=== PATIENT | male | born 1990 | race Caucasian/White ===

== ENCOUNTER 2018-07-29 22:37 | Emergency (ER) | payer OTHER ==
[~2018-07-29] VITALS: Ht 180.3 cm; Wt 88.5 kg
[2018-07-30] MEDS ORDERED: VISTARIL25 MG PO ×2 (01:48→01:50)
[2018-07-30] MEDS ORDERED: NORFLEX100MG PO (01:48)
[2018-07-30] MEDS ORDERED: LEVSIN/SL0.125 MG SL (01:48)
== END 2018-07-30 01:54 | disposition home or self-care (01) ==
LOC: ER 22:37
DX: R53.81 Other malaise (principal); M54.2 Cervicalgia; G47.00 Insomnia, unspecified

== ENCOUNTER 2018-09-12 22:18 | Emergency (ER) | payer OTHER ==
[~2018-09-12] VITALS: Ht 180.3 cm; Wt 89.8 kg
[~2018-09-12 22:18] MED LIST: LEVSIN/SL0.125 MG SL; NORFLEX100MG PO; VISTARIL25 MG PO
== END 2018-09-13 03:22 | disposition home or self-care (01) ==
LOC: ER 22:18
DX: T15.02XA Foreign body in cornea, left eye, initial encounter (principal); W45.8XXA Other foreign body or object entering through skin, initial encounter; Y93.89 Activity, other specified; Y92.89 Other specified places as the place of occurrence of the external cause; Y99.8 Other external cause status

== ENCOUNTER 2018-11-15 00:38 | Emergency (ER) | payer OTHER ==
[~2018-11-15] VITALS: Ht 180.3 cm; Wt 92.1 kg
== END 2018-11-15 02:41 | disposition home or self-care (01) ==
LOC: ER 00:38
DX: S67.190A Crushing injury of right index finger, initial encounter (principal); W23.0XXA Caught, crushed, jammed, or pinched between moving objects, initial encounter; Y93.89 Activity, other specified; Y92.098 Other place in other non-institutional residence as the place of occurrence of the external cause; Y99.8 Other external cause status

== ENCOUNTER 2019-10-25 21:38 | Emergency (ER) | payer OTHER ==
[~2019-10-25] VITALS: Ht 180.3 cm; Wt 88.5 kg
== END 2019-10-26 00:53 | disposition home or self-care (01) ==
LOC: ER 21:38
DX: B34.9 Viral infection, unspecified (principal); Z03.818 Encounter for observation for suspected exposure to other biological agents ruled out; R05 Cough; R06.02 Shortness of breath

== ENCOUNTER 2020-06-13 21:15 | Emergency (ER) | payer OTHER ==
[~2020-06-13] VITALS: Ht 180.3 cm; Wt 89.8 kg
== END 2020-06-13 23:06 | disposition home or self-care (01) ==
LOC: ER 21:15
DX: H10.89 Other conjunctivitis (principal)